=== PATIENT | female | born 1960 | race Caucasian/White ===

== ENCOUNTER 2016-06-06 16:21 | Emergency (ER) | payer BC | END 2016-06-06 16:45 | disposition home or self-care (01) | LOC: ER 16:21 | DX: M54.5 Low back pain (principal); K21.9 Gastro-esophageal reflux disease without esophagitis; F17.200 Nicotine dependence, unspecified, uncomplicated | CPT/HCPCS: 72100; 96372; 99283; J1170; J2800; J2930 ==